=== PATIENT | male | born 1990 | race Caucasian/White ===

== ENCOUNTER 2019-09-13 20:40 | Emergency (ER) | payer BC, OTHER ==
[~2019-09-13] VITALS: Ht 188 cm; Wt 83.7 kg
[2019-09-13 20:57] VITALS: BP 124/66
[2019-09-13] MEDS ORDERED: BACITRACIN TOP OINT 1 UD PKG TOP ONE (22:45)
== END 2019-09-13 22:45 | disposition home or self-care (01) ==
LOC: ER 20:42
DX: S62.525A Nondisplaced fracture of distal phalanx of left thumb, initial encounter for closed fracture (principal); X37.1XXA Tornado, initial encounter; Y93.39 Activity, other involving climbing, rappelling and jumping off; Y92.89 Other specified places as the place of occurrence of the external cause; Y99.8 Other external cause status
CPT/HCPCS: 29125; 73130